=== PATIENT | male | born 1955 | race Caucasian/White ===

== ENCOUNTER → 2016-11-06 | Outpatient (CLI) | payer MEDICARE ==
--- NOTE | 2016-11-21 11:53 | ENG ---
ELECTRONYSTAGMOGRAM REPORT VNG INDICATIONS: A 61-year-old male with dizziness, beginning one month ago, sudden onsets staying about the same with spells occurring on a daily basis, lasting a few minutes at a time. Dizziness can be precipitated by positional changes of going from lying to a seated position or turning the head left to right or bending over or moving the head. Patient denies any hearing loss. He describes buzzing in both ears of a steady nature. VNG FINDINGS: Saccades show intact peak velocities, accuracies and latencies. Gaze with fixation shows no nystagmus in any of the directions of gaze including centrally with vision denied. Tracking shows no breakups. Optokinetic nystagmus shows no asymmetry. Position testing in six different positions with eyes open and with vision denied showed no nystagmus. [place]-Hallpike maneuvers are negative bilaterally. Caloric testing shows bilateral caloric weakness. IMPRESSION: 1. Caloric responses are weak bilaterally. Another test, such as head thrust if available, or active rotation testing is required to confirm presence of bilateral vestibular dysfunction. 2. Otherwise, this is an unremarkable VNG study. MMODL / IJN: [id number] / SAMANTHA
== END | disposition home or self-care (01) ==
LOC: NEUROMAIN 06:40
PROVIDERS: ATTEND Otolaryngology
DX: R42 Dizziness and giddiness (principal)
CPT/HCPCS: 92537; 92540

== ENCOUNTER → 2018-07-29 | Outpatient (CLI) | payer MEDICARE ==
--- NOTE | 2018-08-01 08:39 | EEG ---
ELECTROENCEPHALOGRAM REPORT PROCEDURE DATE: 07/29/2018. ELECTROENCEPHALOGRAM (EEG) REPORT: TECHNIQUE: A routine 18 channel EEG was performed with video using the 10/20 international placement system. HISTORY: Dizzy spells for the past 4-5 months when he becomes short of breath and when walking up stairs. Migraines since childhood. MEDICATIONS: Current medications: Omeprazole, aspirin. STUDY DURATION: 25 minutes. FINDINGS: Background: The background activity consisted of 8-9 hertz rhythmic waveforms symmetrically through both posterior quadrants. ACTIVATION: Hyperventilation: Not performed. Photic stimulation: Symmetric driving seen. Sleep: Stages 1 and 2 sleep noted. ABNORMALITIES: None. Please note that 1 channel of this EEG was dedicated to EKG. It demonstrated a sinus rhythm. IMPRESSION: Normal EEG. No epileptiform activity was present. No seizures were recorded. MMODL / IJN: [id number] /
== END | disposition home or self-care (01) ==
LOC: NEUROMAIN 10:45
PROVIDERS: ATTEND Internal Medicine
DX: I49.3 Ventricular premature depolarization (principal); R00.0 Tachycardia, unspecified; I49.9 Cardiac arrhythmia, unspecified; R55 Syncope and collapse; R06.02 Shortness of breath; Z72.820 Sleep deprivation
CPT/HCPCS: 93225; 93226; 95819

== ENCOUNTER → 2020-09-26 | Outpatient (CLI) | payer MEDICARE ==
--- NOTE | 2020-09-26 23:34 | MR ---
EXAMINATION TYPE: MR brain wo con DATE OF EXAM: 09/26/2020 COMPARISON: None HISTORY: New onset headaches CONTRAST: Performed utilizing 0 mL intravenous Gadavist gadolinium contrast. TECHNIQUE: Multiplanar, multiecho imaging on a 3.0 Saray magnet is performed through the brain. Stud y is performed within 24 hours of arrival to the hospital. The craniovertebral junction is normal. The pituitary is normal. Diffusion-weighted imaging is performed. No abnormal hyperintensity is present to suggest an acute i ntracranial infarct or acute ischemic change. There are scattered punctate hyperintensities within the cerebellum. There are multiple punctate subcortical white matter changes within the bilateral cerebral hemisphere s. Largest on the right subcortical parietal lobe measures 0.7 cm. Series 501 image 20. Largest on th e left measures 0.6 cm and the left coronary radiata. Series 501 image 20. Differential diagnosis cou ld include but is not limited to microvascular ischemic change, multiple sclerosis, migraine headache s, Lyme disease, vasculitis. Ventricles and sulci are appropriate for the patient age. IMPRESSIONS: 1. Multiple deep white matter changes predominantly within the subcortical regions but also present w ithin the cerebellum. Consider multiple sclerosis within the differential.
== END | disposition home or self-care (01) ==
LOC: RADMRIMAIN 15:49
PROVIDERS: ATTEND Family Medicine
DX: R93.0 Abnormal findings on diagnostic imaging of skull and head, not elsewhere classified (principal)
CPT/HCPCS: 70551

== ENCOUNTER → 2020-10-26 | Outpatient (CLI) | payer MEDICARE ==
--- NOTE | 2020-10-26 19:49 | US ---
EXAMINATION TYPE: US kidneys/renal and bladder DATE OF EXAM: 10/26/2020 COMPARISON: NONE CLINICAL HISTORY: CKD stage 3. Renal stones per patient. EXAM MEASUREMENTS: Right Kidney: 8.8 x 5.1 x 4.4 cm Left Kidney: 9.6 x 4.9 x 6.1 cm Post Void Residual Volume: 21.7 mL Right Kidney: multiple renal stones with largest shadowing calculus in the mid pole measuring 0.9cm. Additional large 7.5 mm calculus seen in the inferior pole of the right kidney. There is a 1 cm ane choic/hypoechoic lesion in the lower pole. Left Kidney: Shadowing calculus in the midpole measuring up to 8mm. Additional tiny nonshadowing echo genic foci noted could represent tiny calculi. No hydronephrosis seen in either kidney. Limited study due to technique, suboptimal evaluation for re nal masses. Parenchymal echogenicity is slightly increased could be related to medical renal disease. Bladder: Partially distended unremarkable as seen. Bilateral Jets seen: yes Post Void Residual: 22 mL IMPRESSION: 1. Bilateral nonobstructing nephrolithiasis the largest in the right kidney measures up to 9 mm the l argest in the left kidney measures up to 8 mm. 2. Hypoechoic to anechoic lesion in the right kidney measuring 1 cm likely on the basis of cyst. Noncontrast CT of the abdomen and pelvis recommended for better recognization if clinically indicated .
== END | disposition home or self-care (01) ==
LOC: RADUSWWP 16:08
PROVIDERS: ATTEND Family Medicine
DX: N18.30 Chronic kidney disease, stage 3 unspecified (principal); N20.0 Calculus of kidney
CPT/HCPCS: 76770

== ENCOUNTER → 2021-02-07 | Outpatient (CLI) | payer MEDICARE ==
--- NOTE | 2021-02-07 14:59 | US ---
EXAMINATION TYPE: US kidneys/renal and bladder DATE OF EXAM: 02/07/2021 COMPARISON: 10/26/2020 CLINICAL HISTORY: 65-year-old male N28.9 KIDNEY LESION. History of kidney stones TECHNIQUE: Multiple sonographic images of the kidneys and bladder are obtained. FINDINGS: EXAM MEASUREMENTS: Right Kidney: 9.8x4.8x4.6 cm Left Kidney: 10.1x5.1x5.7 cm Right Kidney: Multiple stones seen largest 0.7cm. The previously described lesion that may have repre sented a lower pole cyst on prior exam is no longer seen and may have represented a prominent renal p yramid. No hydronephrosis. Left Kidney: Stone seen 0.5cm. No hydronephrosis. Bladder: Nondistention limiting evaluation. IMPRESSION: Bilateral nonobstructive nephrolithiasis measuring up to 7 mm. The previous right lower pole renal le raman is no longer seen. Suspect that it had represented a prominent renal pyramid.
== END | disposition home or self-care (01) ==
LOC: RADUSWWP 14:07
PROVIDERS: ATTEND Family Medicine
DX: N20.0 Calculus of kidney (principal)
CPT/HCPCS: 76770

== ENCOUNTER → 2021-07-04 | Outpatient (CLI) | payer MEDICARE ==
[2021-07-04 14:40] LABS: HCT 46.7 % (39.6-50.0); HGB 15.5 g/dL (13.0-17.0); MCH 31.6 pg (27.0-32.0); MCHC 33.2 g/dL (32.0-37.0); MCV 95.1 fL (80.0-97.0); Mean Platelet Volume 9.3 fL (9.5-12.2); NRBC Per 100 WBC 0 /100 WBCS (0.0-0.0); Platelet Count 308 X 10*3/uL (140-440); RBC 4.91 X 10*6/uL (4.40-5.60); RDW 12.2 % (11.5-14.5); WBC 5.66 X 10*3/uL (4.50-10.00)
[2021-07-04 16:37] LABS: Appearance,Urine Clear (Clear); Bacteria,Urine None Seen /HPF (None Seen); Bilirubin,Urine Negative (Negative); Blood,Urine Negative (Negative); Color,Urine Yellow (Yellow); Ketones,Urine Negative (Negative); Nitrite,Urine Negative (Negative); PH, Urine 5.5 (5.0-8.0); Specific Gravity,Urine 1.017 (1.001-1.030); Urobilinogen,Urine 0.2 (0.2,1.0)
[2021-07-04 17:29] LABS: % Iron Saturation 31.56 (15.00-50.00); African American GFR (CKD) 53.3 (60.0-200.0); Albumin 4.5 g/dL (3.8-4.9); Albumin/Globulin Ratio 1.74 (1.60-3.17); Anion Gap 12.6 mmol/L (10.00-18.00); BUN/Creat Ratio 15.13 Ratio (12.00-20.00); Blood Urea Nitrogen 23.3 mg/dL (9.0-27.0); Calcium 9.3 mg/dL (8.7-10.3); Carbon Dioxide 24.1 mmol/L (20.0-27.5); Globulin 2.6 g/dL (1.6-3.3); Magnesium 2.2 mg/dL (1.5-2.4); Phosphorus 2.5 mg/dL (2.4-5.1); Potassium 4.7 mmol/L (3.5-5.5); Total Bilirubin 0.4 mg/dL (0.30-1.20); Total Protein 7.1 g/dL (6.2-8.2); Uric Acid 5.4 mg/dL (3.7-8.7)
== END | disposition home or self-care (01) ==
LOC: LABWHC1 09:37
PROVIDERS: ATTEND Internal Medicine
DX: D64.9 Anemia, unspecified (principal); N39.0 Urinary tract infection, site not specified; N25.81 Secondary hyperparathyroidism of renal origin; E55.9 Vitamin D deficiency, unspecified; M10.9 Gout, unspecified; N18.30 Chronic kidney disease, stage 3 unspecified
CPT/HCPCS: 36415; 80053; 81001; 82306; 82728; 83540; 83550; 83735; 83970; 84100; 84550; 85027

== ENCOUNTER → 2021-08-27 | Outpatient (CLI) | payer MEDICARE ==
--- NOTE | 2021-08-28 13:31 | MR ---
EXAMINATION TYPE: MR Prostate wo/w con DATE OF EXAM: 08/27/2021 COMPARISON: None. INDICATION: ELEVATED PROSTATE SPECIFIC ANTIGEN PSA: 5.90 ng/ml on July 24, 2021 Recent Biopsy and Date: n/a Pathology Report (If Applicable): n/a TECHNIQUE: Examination was performed using a 3T MRI without an endorectal coil. Multiparametric imaging was perf ormed with T2 mutliplanar sequences, axial diffusion weighted imaging and dynamic contrast enhanced i maging, utilizing 7.5 mL intravenous Gadavist gadolinium contrast. FINDINGS: Motion artifact degradation noted making evaluation suboptimal. PROSTATE VOLUME: 3.4 cm SI x 3.6 cm AP x 4.8r cm LR Vol= 30.76 cc Predicted PSA equals 3.69 PSA DENSITY: 0.19 ng/ml/cc Prostate gland only slightly enlarged in size. Peripheral zone shows no areas of increased signal on diffusion weighted imaging or diminished signal on ADC. Transitional zone shows heterogeneity with po sterior 9 mm circumscribed hypointense nodule on axial image 20 in the right base. No areas of hetero geneous marked diminished T2 signal. Seminal vesicles are symmetric and felt within normal limits. Prostate capsule is intact. No suspicio us adjacent adenopathy is seen. Incidental small fat-containing left inguinal hernia. Visualized osseous structures are intact. IMPRESSION: A focus of clinically significant cancer is not identified. Highest Assessment Category: 2 MRI Stage: T 0 N0 M0 based on review of pelvic images. False negative rates for MRI range from 5-20% depending on risk profile. Assessment Categories: 1 ? Very low (clinically significant cancer is highly unlikely to be present) 2 ? Low (clinically significant cancer is unlikely to be present) 3 ? Intermediate (the presence of clinically significant cancer is equivocal) 4 ? High (clinically significant cancer is likely to be present) 5 ? Very high (clinically significant cancer is highly likely to be present) Recommendation: Consider random sampling versus short-term PSA monitoring. If PSA continues to rise r andom sampling likely would be warranted.
== END | disposition home or self-care (01) ==
LOC: RADMRIMAIN 11:18
PROVIDERS: ATTEND Urology
DX: R97.20 Elevated prostate specific antigen [PSA] (principal)
CPT/HCPCS: 72197; A9585

== ENCOUNTER → 2022-02-13 | Outpatient (CLI) | payer MEDICARE ==
--- NOTE | 2022-02-13 22:29 | MR ---
EXAMINATION TYPE: MR cspine/lspine wo con DATE OF EXAM: 02/13/2022 9:41 PM CLINICAL INDICATION:Male, 66 years old with history of M54.2 Cervicalgia R20.8 Other disturbances; COMPARISON: None TECHNIQUE: Multi planar, multi sequence imaging was performed utilizing: T1-weighted, T2-weighted, a nd turbo inversion recovery imaging of the cervical and lumbar spine. MR contrast: IV Contrast: None. FINDINGS: CERVICAL: Alignment: The cervical vertebral bodies have preserved heights. There is slightly kyphotic alignment of the cervical spine. Bones: Scattered Modic endplate changes are noted throughout the cervical spine. Multilevel degenerat evan disc disease is noted and most pronounced at the C5-C6 vertebral levels. T2 vertebral body high T 1 and high T2 signal probable vertebral body hemangioma. Cord: The spinal cord abuts posterior vertebral bodies at the C4 and C5 levels. No abnormal cord sign al identified. Discs: Multilevel disc desiccation is present. C2-C3: No significant disc pathology. The spinal canal is patent. No neural foraminal stenosis. C3-C4: No significant disc pathology. The spinal canal is patent. Bilateral facet and uncovertebral joint arthropathy are present with mild bilateral neural foraminal stenosis. C4-C5: No significant disc pathology. The spinal canal is patent. No neural foraminal stenosis. C5-C6: No significant disc pathology. The spinal canal is patent. Bilateral facet and uncovertebral joint arthropathy are present with moderate bilateral neural foraminal stenosis. C6-C7: No significant disc pathology. The spinal canal is patent. Bilateral facet and uncovertebral joint arthropathy are present with moderate bilateral neural foraminal stenosis. C7-T1: No significant disc pathology. The spinal canal is patent. No neural foraminal stenosis. Other: None. LUMBAR: Alignment: The lumbar vertebral bodies have preserved heights and somewhat straightened alignment. Cord: The conus medullaris and the distal spinal cord appear unremarkable with regards to their signa l intensity and morphology. Bones/Discs: Modic endplate changes and bony edema throughout the spine most pronounced at L2-L3 and L4-L5. Osteophytes are present. Disc space narrowing is also present. L1-L2: No significant disc pathology. Spinal canal is patent. The neural foramen are patent. L2-L3: Mild disc bulging with mild spinal canal stenosis. Facet joint arthropathy with mild bilateral neural foraminal stenosis. L3-L4: Mild disc bulging without significant spinal canal stenosis. Facet joint arthropathy with mild bilateral neural foraminal stenosis. L4-L5: No significant disc pathology. Spinal canal is patent. Facet joint arthropathy with moderate b ilateral neural foraminal stenosis. L5-S1: A central disc protrusion without significant spinal canal stenosis. Facet joint arthropathy a lso present with moderate to severe right and mild to moderate left neural foraminal stenosis. Other findings: None. IMPRESSION: 1. Disc degeneration changes throughout the spine without significant spinal canal stenosis. In the c ervical spine worse at C4-C5 the spinal cord lingula along the posterior aspect of the vertebral bodi es at this level. Cord signal is maintained. 2. Disc degeneration changes of the lumbar spine worse at L4-L5 and L2-L3. 3. Neural foraminal stenosis worse with moderate C5-C6 and C6-C7 as well as moderate to severe right L5-S1 and moderate bilateral L4-L5.
== END | disposition home or self-care (01) ==
LOC: RADMRIMAIN 21:00
PROVIDERS: ATTEND Physical Medicine & Rehabilitation Pain Medicine
DX: M51.36 Other intervertebral disc degeneration, lumbar region (principal); M48.061 Spinal stenosis, lumbar region without neurogenic claudication; M48.02 Spinal stenosis, cervical region; M54.2 Cervicalgia; R20.8 Other disturbances of skin sensation
CPT/HCPCS: 72141; 72148

== ENCOUNTER 2022-09-30 15:23 | Emergency (ER) | payer MEDICARE ==
[2022-09-30 16:00] VITALS: RESP 18; TEMP 99.1
--- NOTE | 2022-09-30 16:52 | ED ---
Extremity Problem HPI - General Chief complaint: Extremity Problem,Nontraumatic Stated complaint: poss DVT rt leg Time Seen by Provider: 09/30/22 16:04 Source: patient, RN notes reviewed, old records reviewed Mode of arrival: ambulatory Limitations: no limitations - History of Present Illness Initial comments: This is a 67-year-old male presents today for evaluation of possible DVT with concern for DVT with recent trauma. Patient does have hematoma resolving the pain is increasingly is concern for DVT in his leg MD Complaint: extremity pain, extremity swelling -: hour(s) Location: right, lower extremity Radiation: proximal Severity scale (1-10): 7 Quality: crushing Consistency: constant Improves with: nothing Worsens with: nothing Associated Symptoms: denies other symptoms - Related Data Allergies Allergy/AdvReac Type Severity Reaction Status Date / Time No Known Allergies Allergy Verified 09/30/22 16:01 Review of Systems ROS Statement: Those systems with pertinent positive or pertinent negative responses have been documented in the HPI. ROS Other: All systems not noted in ROS Statement are negative. Past Medical History Past Medical History: Hyperlipidemia, Hypertension History of Any Multi-Drug Resistant Organisms: None Reported Past Surgical History: Appendectomy, Back Surgery Past Psychological History: No Psychological Hx Reported Smoking Status: Never smoker Past Alcohol Use History: None Reported Past Drug Use History: None Reported General Exam Limitations: no limitations General appearance: alert, in no apparent distress Head exam: Present: atraumatic, normocephalic, normal inspection Eye exam: Present: normal appearance, PERRL, EOMI. Absent: scleral icterus, conjunctival injection, periorbital swelling ENT exam: Present: normal exam, mucous membranes moist Neck exam: Present: normal inspection. Absent: tenderness, meningismus, lymphadenopathy Respiratory exam: Present: normal lung sounds bilaterally. Absent: respiratory distress, wheezes, rales, rhonchi, stridor Cardiovascular Exam: Present: regular rate, normal rhythm, normal heart sounds. Absent: systolic murmur, diastolic murmur, rubs, gallop, clicks GI/Abdominal exam: Present: soft, normal bowel sounds. Absent: distended, tenderness, guarding, rebound, rigid Extremities exam: Present: normal inspection, full ROM, normal capillary refill. Absent: tenderness, pedal edema, joint swelling, calf tenderness Back exam: Present: normal inspection Neurological exam: Present: alert, oriented X3, CN II-XII intact Psychiatric exam: Present: normal affect, normal mood Skin exam: Present: warm, dry, intact, normal color. Absent: rash Course Vital Signs 09/30/22 09/30/22 15:55 18:35 Temperature 99.1 F Pulse Rate 87 90 Respiratory 18 18 Rate Blood Pressure 129/86 132/78 O2 Sat by Pulse 96 100 Oximetry - Reevaluation(s) Reevaluation #1: 09/30/22 16:52 Medical records reviewed Reevaluation #2: 10/01/22 00:35 Patient symptoms unchanged Reevaluation #3: 10/01/22 00:35 Patient informed results and questions answered Reevaluation #4: 09/30/22 16:52 Was pt. sent in by a medical professional or institution? @ -no Did you speak to anyone other than the patient for history? @ -no Did you review nursing and triage notes? @ -agree Were old charts reviewed? @ -yes Differential Diagnosis? @ -prior EKG interpreted by me (3pts min.)? @ -yes X-rays interpreted by me (1pt min.)? @ -yes CT interpreted by me (1pt min.)? @ -no U/S interpreted by me (1pt. min.)? @ -no What testing was considered but not performed? (CT, X-rays, U/S, labs)? Why? @ -no What meds were considered but not given? Why? @ -no Did you discuss the management of the patient with other professionals? @ -no Did you reconcile home meds? @ -no Was smoking cessation discussed for >3mins.? @ -no Was critical care preformed (if so, how long)? @ -no Were there social determinants of health that impacted care today? How? (Homelessness, low income, unemployed, alcoholism, drug addiction, transportation, low edu. Level, literacy, decrease access to med. care, shelter, rehab)? @ -no Was there de-escalation of care discussed even if they declined? (Discuss DNR or withdrawal of care, Hospice)? @ -no What co-morbidities impacted this encounter? (DM, HTN, Smoking, COPD, CAD, Cancer, CVA, Hep., AIDS, mental health diagnosis, sleep apnea, morbid obesity)? @ -none Was patient admitted / discharged? @ - Undiagnosed new problem with uncertain prognosis? @ -no Drug Therapy requiring intensive monitoring for toxicity (Heparin, Nitro, Insulin, Cardizem)? @ -no Were any procedures done? @ -no Diagnosis/symptom? @ - Acute, or Chronic, or Acute on Chronic? @ -acute Uncomplicated (without systemic symptoms) or Complicated (systemic symptoms)? @ -complicated Side effects of treatment? @ -no Exacerbation, Progression, or Severe Exacerbation] @ -no Poses a threat to life or bodily function? @ -yes Medical Decision Making - Medical Decision Making 59 male DF for evaluation of possible DVT in leg patient does have significant contusion hematoma resolving. Also negative for DVT and patient can be discharged home - Radiology Data Radiology results: report reviewed (Ultrasound lower extremity negative for DVT), image reviewed Disposition Clinical Impression: Contusion of right leg Disposition: HOME SELF-CARE Condition: Good Instructions (If sedation given, give patient instructions): Contusion in Adults (ED) Is patient prescribed a controlled substance at d/c from ED?: No Referrals: Chuy Simpson MD [Primary Care Provider] - 1-2 days Time of Disposition: 18:30
--- NOTE | 2022-09-30 18:26 | US ---
EXAMINATION TYPE: US venous doppler duplex LE RT DATE OF EXAM: 09/30/2022 5:29 PM COMPARISON: NONE CLINICAL INDICATION: Male, 67 years old with history of pain; Right calf pain for a few weeks with pa lpable areas felt, no ho dvt, no redness, no swelling SIDE PERFORMED: Right TECHNIQUE: The lower extremity deep venous system is examined utilizing real time linear array sonog estevan with graded compression, doppler sonography and color-flow sonography. VESSELS IMAGED: Common Femoral Vein Deep Femoral Vein Greater Saphenous Vein * Femoral Vein Popliteal Vein Small Saphenous Vein * Proximal Calf Veins (* superficial vessels) Right Leg: Negative for DVT *palpable areas felt on right calf may be a fading contusion, hyperechoi c areas seen under the surface of the skin resembling resolving hematoma IMPRESSION: 1. No evidence for deep vein thrombosis. 2. Suspected resolving contusion/hematoma within the right calf. Continued attention on follow-up im aging as clinically warranted.
[2022-09-30 18:36] VITALS: BP 132/78; PULSE 90
== END 2022-09-30 18:36 | disposition home or self-care (01) ==
LOC: EC 15:23
DX: S80.11XA Contusion of right lower leg, initial encounter (principal); I10 Essential (primary) hypertension; X58.XXXA Exposure to other specified factors, initial encounter
CPT/HCPCS: 99284

== ENCOUNTER → 2024-04-01 | Outpatient (CLI) | payer MEDICARE | END | disposition home or self-care (01) | LOC: LABWHC1 08:23 | PROVIDERS: ATTEND Urology | DX: R97.20 Elevated prostate specific antigen [PSA] (principal) | CPT/HCPCS: 36415; 84153 ==

== ENCOUNTER → 2024-07-22 | Outpatient (CLI) | payer MEDICARE ==
[2024-07-22 14:49] LABS: Basophils # (A) 0.04 X 10*3/uL (0.00-0.10); Basophils % (A) 0.8 %; Eosinophils # (A) 0.13 X 10*3/uL (0.04-0.35); Eosinophils % (A) 2.7 %; HCT 44.6 % (39.6-50.0); HGB 14.7 g/dL (13.0-17.0); Immature Grans, Automated 0 %; Lymphocytes # (A) 1.09 X 10*3/uL (0.90-5.00); Lymphocytes % (A) 22.5 %; MCH 31.7 pg (27.0-32.0); MCV 96.1 FL (80.0-97.0); Mean Platelet Volume 9.7 FL (9.5-12.2); Monocytes # (A) 0.48 X 10*3/uL (0.20-1.00); Monocytes % (A) 9.9 %; NRBC Per 100 WBC 0 X 10*3/uL (0.00-0.01); Neutrophils # (A) 3.11 X 10*3/uL (1.80-7.70); Neutrophils % (A) 64.1 %; Platelet Count 298 X 10*3/uL (140-440); RBC 4.64 X 10*6/uL (4.40-5.60); RDW 12.3 % (11.5-14.5); WBC 4.85 X 10*3/uL (4.50-10.00)
[2024-07-22 15:34] LABS: % Iron Saturation 45.34 (15.00-50.00); Albumin 4.4 g/dL (3.8-4.9); BUN/Creat Ratio 13.64 Ratio (12.00-20.00); Blood Urea Nitrogen 19.1 mg/dL (9.0-27.0); Calcium 9.8 mg/dL (8.7-10.3); Carbon Dioxide 25.6 mmol/L (21.6-31.8); Chloride 104 mmol/L (96-109); Glucose 107 mg/dL (70-110); Iron 141 UG/DL (65-175); Magnesium 2.4 mg/dL (1.5-2.4); Phosphorus 2.9 mg/dL (2.4-5.1); Potassium 4.7 mmol/L (3.5-5.5); Sodium 141 mmol/L (135-145); Total Iron Binding Capacity 311 UG/DL (228-460); Uric Acid 5.6 mg/dL (3.7-8.7)
[2024-07-22 16:36] LABS: Appearance,Urine Turbid (Clear); Bilirubin,Urine Negative (Negative); Blood,Urine Negative (Negative); Color,Urine Yellow (Yellow); Ketones,Urine Negative (Negative); Nitrite,Urine Negative (Negative); PH, Urine 5.5; Specific Gravity,Urine 1.024 (1.001-1.030); Urobilinogen,Urine 0.2 E.U./DL
[2024-07-22 16:49] LABS: Bacteria,Urine None Seen (None Seen)
[2024-07-22 18:12] LABS: Microalbumin Creatinine Ratio <5 mg/g Cr (0-30)
== END | disposition home or self-care (01) ==
LOC: LABWHC1 08:23
PROVIDERS: ATTEND Internal Medicine
DX: N18.31 Chronic kidney disease, stage 3a (principal)
CPT/HCPCS: 36415; 80048; 81001; 82040; 82043; 82306; 82570; 82728; 83540; 83550; 83735; 83970; 84100; 84550; 85025